=== PATIENT | female | born 1970 | race Caucasian/White ===

== ENCOUNTER 2017-09-16 16:56 | Emergency (ER) | payer OTHER ==
[2017-09-16 17:04] VITALS: BP 101/66
[2017-09-16] MEDS ORDERED: DICYCLOMINE 10 MG CAPSULE PO STA (18:04)
[2017-09-16] MEDS ORDERED: METOCLOPRAMIDE 10 MG TABLET PO STA (18:04)
--- NOTE | 2017-09-16 18:07 | ED Physician Documentation ---
PD HPI ABD PAIN - Stated complaint Stated Complaint: L SIDE PX/N/CONSTIPATED - Chief complaint Chief Complaint: Abd Pain - History obtained from History obtained from: Patient - History of Present Illness Timing - onset: Other (For the last 9 years she has had constant left mid abdominal pain that is worse after eating. She has been chronically constipated that her doctor is treating with magnesium tablets. It has been a little worse over the last 4 days. She has had a change in stool caliber. She had a remote cholecystectomy, tubal ligation and endometrial ablation.) Review of Systems Constitutional: denies: Fever, Chills, Weight Loss GI: reports: Nausea. denies: Vomiting, Diarrhea, Hematemesis, Bloody / black stool PD PAST MEDICAL HISTORY - Past Medical History Cardiovascular: None Respiratory: None Neuro: Headache/migraine Psych: Depression, Post traumatic stress disorder - Past Surgical History Past Surgical History: Yes General: Cholecystectomy - Present Medications Home Medications: Ambulatory Orders Medication Instructions Recorded Confirmed Clindamycin [Cleocin] 300 mg PO Q6H 7 Days capsule 09/08/14 Gabapentin 0 mg PO BID 09/08/14 09/08/14 Meloxicam 10 mg PO DAILY PRN 09/08/14 09/08/14 Methyl Salicylate/Menthol [Icy Hot 0 gm TOP DAILY PRN 09/08/14 09/08/14 Cream] Naproxen [Naprosyn] 500 mg PO Q6HR PRN 09/08/14 09/08/14 Polymyxin B/Trimeth Ophth Drop 1 drops OPTH Q4H 7 Days ml 09/08/14 [Polytrim Ophth Drops] buPROPion [Wellbutrin Sr] 100 mg PO BID 09/08/14 09/08/14 Dicyclomine HCl 20 mg PO QID PRN #20 tablet 09/16/17 Metoclopramide [Reglan] 10 mg PO Q6H PRN #20 tablet 09/16/17 Polyethylene Glycol 3350 [Miralax] 17 gm PO DAILY PRN #1 bottle 09/16/17 - Allergies Allergies/Adverse Reactions: Allergies Allergy/AdvReac Type Severity Reaction Status Date / Time Penicillins Allergy Anaphylaxis Verified 09/16/17 17:03 aspirin AdvReac Nausea Verified 09/16/17 17:03 - Social History Does the pt smoke?: Yes Smoking Status: Current every day smoker Does the pt drink ETOH?: No Does the pt have substance abuse?: No PD ED PE NORMAL - Vitals Vital signs reviewed: Yes - General General: Alert and oriented X 3, No acute distress - Abdomen Abdomen: Normal bowel sounds, Soft, Non tender - Neuro Neuro: Alert and oriented X 3, Normal speech Results - Vitals Vitals: Vital Signs - 24 hr 09/16/17 17:01 Temperature 37 C Heart Rate 80 Respiratory 18 Rate Blood Pressure 101/66 O2 Saturation 98 Oxygen O2 Source Room air PD MEDICAL DECISION MAKING - ED course ED course: She has chronic constipation and left-sided abdominal pain. We consider doing a CT tonight but the appropriate first studies will actually be endoscopies which she can have as an outpatient and she is advised to talk with her doctor about this. Departure - Departure Disposition: 01 Home, Self Care Clinical Impression: Abdominal pain Qualifiers: Abdominal location: left upper quadrant Qualified Code(s): R10.12 - Left upper quadrant pain Constipation Qualifiers: Constipation type: slow transit constipation Qualified Code(s): K59.01 - Slow transit constipation Condition: Good Record reviewed to determine appropriate education?: Yes Instructions: ED Constipation, ED Abdominal Pain Unkn Cause Prescriptions: Dicyclomine HCl 20 mg PO QID PRN #20 tablet PRN Reason: Abdominal Cramps Metoclopramide [Reglan] 10 mg PO Q6H PRN #20 tablet PRN Reason: Nausea / Vomiting Polyethylene Glycol 3350 [Miralax] 17 gm PO DAILY PRN #1 bottle PRN Reason: Constipation Comments: Follow-up with your doctor at the [facility] and discuss upper and lower endoscopies. Return if worse or if medications do not help.
== END 2017-09-16 18:20 | disposition home or self-care (01) ==
LOC: ED 16:56
DX: R10.12 Left upper quadrant pain (principal); K59.01 Slow transit constipation; F17.200 Nicotine dependence, unspecified, uncomplicated
CPT/HCPCS: 99281; 99283; A9270

== ENCOUNTER 2021-08-21 16:09 | Emergency (ER) | payer OTHER ==
[2021-08-21 16:20] VITALS: BP 146/88
[2021-08-21] MEDS ORDERED: NAPROXEN 250 MG TABLET PO STA (16:30)
[2021-08-21] MEDS ORDERED: ACETAMINOPHEN 325 MG TABLET PO STA (16:30)
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
--- NOTE | 2021-08-21 17:18 | XRAY Report ---
PROCEDURE: Shoulder 3 View LT INDICATIONS: shoulder inj TECHNIQUE: 3 views of the shoulder were acquired. COMPARISON: None. FINDINGS: Bones: No fractures or dislocations. No suspicious bony lesions. Visualized ribs appear intact. M ild periarticular osteophyte formation at the acromioclavicular and glenohumeral joints. Soft tissues: No suspicious soft tissue calcifications. IMPRESSION: No acute fracture. No osseous lesion. If symptoms and/or clinical suspicion for patholog y continue, further assessment with repeat plain films, or advanced imaging (e.g., CT, MRI, or bone s can) is recommended for further assessment. Reviewed by: Lisa Cooley MD on 08/21/2021 4:16 PM [facility] Approved by: Lisa Cooley MD on 08/21/2021 4:16 PM [facility] Station ID: [id number]
== END 2021-08-21 17:09 | disposition home or self-care (01) ==
LOC: ED 16:09
DX: S40.012A Contusion of left shoulder, initial encounter (principal); M25.522 Pain in left elbow; M54.2 Cervicalgia; V53.5XXA Driver of pick-up truck or van injured in collision with car, pick-up truck or van in traffic accident, initial encounter; Y92.410 Unspecified street and highway as the place of occurrence of the external cause; F17.200 Nicotine dependence, unspecified, uncomplicated
CPT/HCPCS: 73030; 99282; 99283; A9270

== ENCOUNTER 2021-09-22 14:30 | Outpatient (CLI) | payer OTHER ==
--- NOTE | 2021-09-23 07:25 | Mammography Report ---
BILATERAL DIGITAL SCREENING MAMMOGRAM 3D/2D: 09/22/2021 CLINICAL: Family history of breast cancer. Routine screening. Comparison is made to exams dated: 12/21/2015 mammogram and 04/02/2013 mammogram - [facility]. The tissue of both breasts is heterogeneously dense. This may lower the sensitivity of ma mmography. There is an oval equal density focal asymmetry with an obscured and circumscribed margin in the left breast at 9 o'clock anterior depth. There also is an oval equal density focal asymmetry with an obscured and circumscribed margin in the left breast at 10 o'clock middle depth. No other significant masses, calcifications, or other findings are seen in either breast. IMPRESSION: INCOMPLETE: NEEDS ADDITIONAL IMAGING EVALUATION The oval equal density focal asymmetry in the left breast at 9 o'clock anterior depth is indeterminat e. Mediolateral and spot compression views as well as additional views with possible ultrasound are recommended. The oval equal density focal asymmetry in the left breast at 10 o'clock middle depth is indeterminate . Mediolateral and spot compression views as well as additional views with possible ultrasound are r ecommended. This exam was interpreted at Station ID: [id number]. NOTE: For mammograms, a report in lay terms will be sent to the patient. Approximately 15% of breast malignancies will not be visualized mammographically. In the management of a palpable breast mass, a negative mammogram must not discourage biopsy of a clinically suspicious lesion. Electronically Signed By: Sen Nuñez M.D. ddp/:09/22/2021 15:48:18 ACR BI-RADS Category 0: Incomplete 3340F PARENCHYMAL PATTERN: (D) - The breast(s) demonstrate(s) heterogeneously dense fibroglandular parenchy ma. BI-RADS CATEGORY: (0) - 0 Mammo and [place] [id number] Immediate follow-up LATERALITY: (B)
== END 2021-09-22 14:31 | disposition home or self-care (01) ==
LOC: DI.N 14:30
PROVIDERS: ATTEND Hospitalist
DX: Z12.31 Encounter for screening mammogram for malignant neoplasm of breast (principal); R92.8 Other abnormal and inconclusive findings on diagnostic imaging of breast; Z80.3 Family history of malignant neoplasm of breast